=== PATIENT | female | born 1965 | race Caucasian/White ===

== ENCOUNTER 2025-01-11 12:47 | Outpatient (REF) | payer BC, SELFPAY ==
--- NOTE | ~2025-01-11 | XR_ITS ---
CLINICAL HISTORY: M48.062 - Spinal stenosis, lumbar region with neurogenic claudication --- Additional Notes or Special Instructions: AP lateral flexion extension 4 views lumbar spine Comparison: None provided Findings: Grade 1 retrolisthesies L2 on L3 and L3 on L4. Grade 1 anterolisthesis L4 on L5. Grade 2 anterolisthesis L5 on S1. Findings are not significantly change in flexion or extension. Slight dextroscoliosis apex L3. No acute fractures or dislocation. No significant vertebral body compression deformity. Moderate to moderately severe multilevel disc space narrowing especially L3-4. Small multilevel endplate osteophytes. Moderate to moderately severe multilevel facet arthrosis especially L5-S1. IMPRESSION: 1. No acute fracture in the lumbar spine. 2. Multilevel spondylolistheses as described with no findings to suggest instability. 3. Moderate to moderately severe degenerative changes. This document has been electronically signed by: Ara Kilgore DO on 01/11/2025 15:35:10
== END 2025-01-11 12:48 | disposition home or self-care (01) ==
LOC: HO.HOSX 12:47
PROVIDERS: PCP Family Medicine; Visit Provider Neurological Surgery
DX: M48.062 Spinal stenosis, lumbar region with neurogenic claudication (principal)
CPT/HCPCS: 72110

== ENCOUNTER 2025-01-11 12:47 | Outpatient (AMB) | payer BC, SELFPAY ==
[2025-01-11 12:57] VITALS: BMI 23.0
--- NOTE | 2025-01-11 12:57 | A.SPINEOV_ITS ---
Vital Signs 01/11/25 12:57 Height 5 ft 3 in Weight 130 lb BMI 23.0 Intake Visit Reasons: lumbar stenosis Intake Note: Ms. Mendez is here today c/o low back pain. 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 HPI: This 59-year-old female he is having a 2 year history of progressive pain that radiates from the were sacral area into her buttocks down to the outside of her lower legs and top of her feet. She can hardly stand or walk due to the symptoms. The symptoms are similar in intensity in both legs. Sitting down or leaning forward improves the symptoms. There is associated paresthesias in the lateral part of the distal legs. She occasionally trips. 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 She takes the elevator to avoid walking. She takes anti-inflammatory drugs. Epidural steroid injections provided temporary relief. Physical therapy was completed and did not improve her symptoms. - PMH: Arthritis, history of depression, hysterectomy, bunionectomy, carpal tunnel release Medications: Cyclobenzaprine well p.r.n., meclizine p.r.n., methylphenidate Allergies: Bacitracin, Mike. Social history: . 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 Nonsmoker Physical Exam: Pleasant female. Height 5 ft 3, weight 130 lb. She is able to reproduce his symptoms after a few minutes standing in the office. The symptoms radiate in an L5 dermatome bilaterally. Motor exam shows a grade 4-/5 weakness of the right dorsiflexors. The remainder of the muscle groups are intact. Sensory exam is intact. No pathological reflexes. Radiological Studies: MRI done at [facility] on 10/11/2024 shows a grade 1-2 spondylolisthesis L5-S1 with bilateral severe L5 foraminal stenosis. There is also an anterolisthesis L4-5 causing moderate central stenosis. Overall there is lumbar degenerative disc disease from L1-S1. Dynamic x-rays today show grade 2 L5-S1 spondylolisthesis and a grade 1 L4-5 spondylolisthesis. The L5-S1 spondylolisthesis is unstable. Impression/Plan: This patient is suffering from neurogenic claudication in L5 dermatome. Most likely his symptoms are related to the L5-S1 spondylolisthesis but the L4-5 spondylolisthesis can not be excluded as a contributing factor as well. Therefore, I recommended an anterior lumbar interbody fusion L4-5, L5-S1. This will allow a congregation of the lumbar anatomy and indirect decompression of the nervous structures that are responsible for the neurogenic claudication symptoms. The patient wants to proceed. She has to find the right time as she does not have enough sick time. She will call my office for a date. She also has to seedrShailesh Duvall, the approach surgeon. Thank you for allowing me to participate in your patients care. total time spent was 50 minutes in counseling ,coordination of plan, personal review of imaging, surgical decision making and subsequent plan Anson Sinclair MD, PhD Spine Fellowship Trained Neurosurgeon Director, [facility] Orders: Orders XR lumbar spine 4V min Today M48.062 - Spinal stenosis, lumbar region with neurogenic claudication Coding Level of Care Code New Pt Level 4 (99293) Diagnoses Lumbar stenosis with neurogenic claudication M48.062
== END 2025-01-11 14:31 | disposition home or self-care (01) ==
LOC: HO.HNS 12:48
PROVIDERS: PCP Family Medicine; Visit Provider Neurological Surgery
DX: M48.062 Spinal stenosis, lumbar region with neurogenic claudication (principal)
CPT/HCPCS: 99204

== ENCOUNTER → 2025-01-11 13:31 | Outpatient (BNV) | payer BC, SELFPAY | PROVIDERS: PCP Family Medicine; Visit Provider Radiology Diagnostic Radiology | DX: M43.16 Spondylolisthesis, lumbar region (principal) | CPT/HCPCS: 72110 ==

== ENCOUNTER → 2025-03-12 11:13 | Outpatient (BNV) | payer BC, SELFPAY | PROVIDERS: Admitting Provider Neurological Surgery; Visit Provider Internal Medicine Cardiovascular Disease | DX: Z01.810 Encounter for preprocedural cardiovascular examination (principal) | CPT/HCPCS: 93010 ==

== ENCOUNTER 2025-03-26 09:32 | Outpatient (BNV) | payer BC, SELFPAY | END 2025-03-26 13:40 | PROVIDERS: Admitting Provider Neurological Surgery; Visit Provider Radiology Diagnostic Radiology | DX: Z03.89 Encounter for observation for other suspected diseases and conditions ruled out (principal); Z98.1 Arthrodesis status | CPT/HCPCS: 74018 ==

== ENCOUNTER 2025-03-26 09:32 | Inpatient (IN) | payer BC, SELFPAY ==
--- NOTE | 2025-03-12 | ECG_ITS ---
Test Reason : PREOP Blood Pressure : */* mmHG Vent. Rate : 73 BPM Atrial Rate : 73 BPM P-R Int : 134 ms QRS Dur : 80 ms QT Int : 396 ms P-R-T Axes : 56 19 32 degrees QTcB Int : 436 ms Normal sinus rhythm Normal ECG No previous ECGs available Referred By: Rosalva Castro Electronically Signed By: MIKE JEAN-BAPTISTE MD
[2025-03-12 10:18] VITALS: BP 119/78; PULSE 80; RESP 16; O2SAT 97; BMI 23.0
--- NOTE | 2025-03-12 10:44 | HO.ANESPROP2 ---
Documented by User: Rosalva Castro NP 03/13/25 09:38 HPI - Anesthesia Eval Consult details Narrative: 59yo F for ?L4-5,L5-S1 Ant Lumbar Interbody Fusion, 03/26/25 Mild URI weeks ago resolved No CP. 2023 onset of asthma-like symptoms and bronchospasm. PCP rx'd new prn albuterol with rare need GERD well controlled on ppi - was having difficulty swallowing prior and now resolved (~6 years treatment) PMF Active Problems Active Problems: All Active Problems Lumbar stenosis with neurogenic claudication (Acute) Past Medical History Medical History History of anemia History of blood transfusion (~2004) Foot drop, right foot Numbness and tingling of both legs Seasonal allergies SOB (shortness of breath) on exertion OAB (overactive bladder) GERD (gastroesophageal reflux disease) Gout Spinal stenosis Depression RASHEED (generalized anxiety disorder) ADD (attention deficit disorder) Family History Family history of problems with anesthesia: No Surgical History Surgical History Hx of tonsillectomy History of arthroscopy of left shoulder (~2023) Hx of arthroscopy of right knee Hx of hernia repair (~1964) Hx of hysterectomy (2004) Hx of colonoscopy (~2023) History of carpal tunnel surgery of right wrist History of bunionectomy of both great toes (~1999) History of Problems with Anesthesia: No Social History Social History Are you a primary palliative care specialist to a significant other at home: No Do you presently have visiting nurse or other home services: No Patient Tobacco Use Status: Never used Tobacco Use of substances other than those prescribed or required for medical reasons: No Have you been hit, kicked, punched, or otherwise hurt by someone within the past year? If so, by whom?: No Are you DNR?: No Advance Directives: No Advance Directives Information Provided: Yes Advance Directives on File: No Meds Allergies Allergy/AdvReac Type Severity Reaction Status Date / Time bacitracin Allergy Severe Hives Verified 03/26/25 09:18 benoxinate Allergy Severe Hives Verified 03/26/25 09:18 Zync Allergy Severe Hives Uncoded 03/26/25 09:18 Home Medications ?Medication ?Instructions ?Recorded ?Confirmed ?Last Taken ?Type ascorbic acid (vitamin C) 500 mg 500 mg PO DAILY 03/11/25 03/26/25 Unknown History tablet (Vitamin C) biotin 1,000 mg PO DAILY 03/11/25 03/26/25 Unknown History celecoxib 200 mg capsule (Celebrex) 200 mg PO DAILY 03/11/25 03/26/25 03/19/25 History methylphenidate HCl 10 mg tablet 10 mg PO TID 03/11/25 03/26/25 Unknown History omeprazole 40 mg capsule,delayed 40 mg PO DAILY 03/11/25 03/26/25 03/26/25 08:00 History release oxcarbazepine 300 mg tablet 150 mg PO BID 03/11/25 03/26/25 03/26/25 08:00 History oxybutynin chloride 10 mg 10 mg PO QAM 03/11/25 03/26/25 Unknown History tablet,extended release 24 hr venlafaxine 150 mg 150 mg PO DAILY 03/11/25 03/26/25 03/26/25 08:00 History capsule,extended release 24 hr albuterol sulfate 90 mcg/actuation 2 puff inhalation Q4-6H PRN 03/12/25 03/26/25 Unknown History aerosol inhaler Shortness Of Breath Or Wheezing ibuprofen 600 mg tablet 600 mg PO Q8H PRN Pain 03/12/25 03/26/25 03/19/25 History Exam Height,Weight and Vital Signs: Height 5 ft 3 in Weight 58.8 kg Last Vital Signs Pulse 80 03/12/25 10:18 Resp 16 03/12/25 10:18 BP 119/78 03/12/25 10:18 Pulse Ox 97 03/12/25 10:18 O2 Del Method Room Air 03/12/25 10:18 Pertinent Lab Results Pertinent Lab Results: Lab Results 03/12/25 03/12/25 Range/Units 11:22 11:30 WBC 7.2 (4.8-10.8) X10*3/uL RBC 4.18 L (4.20-5.50) X10*6/uL Hgb 13.7 (12.0-16.0) g/dl Hct 40.7 (37.0-47.0) % MCV 97.4 (80.0-98.0) fL MCH 32.8 (27.0-33.0) pg MCHC 33.7 (31.0-35.0) g/dl RDW 11.9 (11.0-16.0) % Plt Count 278 (160-400) X10*3/uL MPV 9.3 L (9.4-12.3) fL Absolute Nucleated RBC 0.000 (0.0-0.012) X10*3/uL Nucleated RBC % (auto) 0.0 (0.0-0.2) /100WBC Sodium 137 (135-145) mmol/L Potassium 4.4 (3.3-5.1) mmol/L Chloride 100 (96-108) mmol/L Carbon Dioxide 29 (22-29) mmol/L Anion Gap 12 (12-20) BUN 14 (9-16) mg/dL Creatinine 0.65 (0.5-1.4) mg/dL Estim Creat Clear Calc 76.1 Estimated GFR > 60 Random Glucose 88 (60-115) mg/dL Calcium 9.8 (8.4-10.2) mg/dL Blood Type A Positive Antibody Screen NEGATIVE Narrative Narrative: EKG 03/2025 Vent. Rate : 73 BPM Atrial Rate : 73 BPM P-R Int : 134 ms QRS Dur : 80 ms QT Int : 396 ms P-R-T Axes : 56 19 32 degrees QTcB Int : 436 ms Normal sinus rhythm Normal ECG No previous ECGs available Airway Mallampati Class: II TM Dist: >3cm Neck ROM: Full Loose/Missing/Broken Teeth: No (crowns stable) Heart: RRR Lungs: CTAB Assessment and Plan Assessment Anesthesia Assessment: Anesthesia Plan Discussed and PAT Visit Final Anesthetic Review Family History of Problems with Anesthesia: No History of Problems with Anesthesia: No Documented by User: Mathew Sykes MD 03/26/25 13:25 [facility] Past Medical History Medical History History of anemia History of blood transfusion (~2004) Foot drop, right foot Numbness and tingling of both legs Seasonal allergies SOB (shortness of breath) on exertion OAB (overactive bladder) GERD (gastroesophageal reflux disease) Gout Spinal stenosis Depression RASHEED (generalized anxiety disorder) ADD (attention deficit disorder) Surgical History Surgical History Hx of tonsillectomy History of arthroscopy of left shoulder (~2023) Hx of arthroscopy of right knee Hx of hernia repair (~1964) Hx of hysterectomy (2004) Hx of colonoscopy (~2023) History of carpal tunnel surgery of right wrist History of bunionectomy of both great toes (~1999) Social History Social History Are you a primary palliative care specialist to a significant other at home: No Do you presently have visiting nurse or other home services: No Patient Tobacco Use Status: Never used Tobacco Use of substances other than those prescribed or required for medical reasons: No Have you been hit, kicked, punched, or otherwise hurt by someone within the past year? If so, by whom?: No Are you DNR?: No Advance Directives: No Advance Directives Information Provided: Yes Advance Directives on File: No Meds Allergies Allergy/AdvReac Type Severity Reaction Status Date / Time bacitracin Allergy Severe Hives Verified 03/26/25 09:18 benoxinate Allergy Severe Hives Verified 03/26/25 09:18 Zync Allergy Severe Hives Uncoded 03/26/25 09:18 Home Medications ?Medication ?Instructions ?Recorded ?Confirmed ?Last Taken ?Type ascorbic acid (vitamin C) 500 mg 500 mg PO DAILY 03/11/25 03/26/25 Unknown History tablet (Vitamin C) biotin 1,000 mg PO DAILY 03/11/25 03/26/25 Unknown History celecoxib 200 mg capsule (Celebrex) 200 mg PO DAILY 03/11/25 03/26/25 03/19/25 History methylphenidate HCl 10 mg tablet 10 mg PO TID 03/11/25 03/26/25 Unknown History omeprazole 40 mg capsule,delayed 40 mg PO DAILY 03/11/25 03/26/25 03/26/25 08:00 History release oxcarbazepine 300 mg tablet 150 mg PO BID 03/11/25 03/26/25 03/26/25 08:00 History oxybutynin chloride 10 mg 10 mg PO QAM 03/11/25 03/26/25 Unknown History tablet,extended release 24 hr venlafaxine 150 mg 150 mg PO DAILY 03/11/25 03/26/25 03/26/25 08:00 History capsule,extended release 24 hr albuterol sulfate 90 mcg/actuation 2 puff inhalation Q4-6H PRN 03/12/25 03/26/25 Unknown History aerosol inhaler Shortness Of Breath Or Wheezing ibuprofen 600 mg tablet 600 mg PO Q8H PRN Pain 03/12/25 03/26/25 03/19/25 History Assessment and Plan Final Anesthetic Review NPO: Yes ASA Class: II Final Preanesthetic Review: No Changes in Pt Med Stat, Meds/Allgs Chart Reviewed, Consent Obtained/Reviewed and Anes Risks/Benef Reviewed Patient Risk: Low Procedure Risk: Low Anesthetic Plan Anesthetic Plan: GA Disposition: Standard PACU
[2025-03-12 12:05] LABS: Hematocrit 40.7 % (37.0-47.0); Hemoglobin 13.7 g/dl (12.0-16.0); Mean Corpuscular HGB Conc 33.7 g/dl (31.0-35.0); Mean Corpuscular Hemoglobin 32.8 pg (27.0-33.0); Mean Corpuscular Volume 97.4 fL (80.0-98.0); NRBC Abs Auto 0.000 X10*3/uL (0.0-0.012); NRBC Pct Auto 0.0 /100WBC (0.0-0.2); Platelet Count 278 X10*3/uL (160-400); Red Blood Count 4.18 X10*6/uL (4.20-5.50); White Blood Count 7.2 X10*3/uL (4.8-10.8)
[2025-03-12 12:28] LABS: Anion Gap 12 (12-20); Blood Urea Nitrogen 14 mg/dL (9-16); Calcium 9.8 mg/dL (8.4-10.2); Carbon Dioxide 29 mmol/L (22-29); Chloride 100 mmol/L (96-108); Creatinine Clr Calc Pharmacy 76.1; Estimated Glomerular Filt Rate > 60; Potassium 4.4 mmol/L (3.3-5.1); Sodium 137 mmol/L (135-145)
[2025-03-26] VITALS (8 sets, daily range): BP systolic 100–137; BP diastolic 52–90; PULSE 77–92; RESP 12–19; TEMP 36.1–36.9; O2SAT 93–100; BMI 24.5
--- NOTE | ~2025-03-26 | FL_ITS ---
EXAMINATION: XR FLUOROSCOPY WITH IMAGES CLINICAL INFORMATION: L4-5, L5-S1 ALIF COMPARISON: X-ray 06/21/2024 TECHNIQUE: Fluoroscopy time: 2.4 minutes DAP: 80 mGycm2 Images: 4 FINDINGS: Fluoroscopy provided in the operating room. Intraoperative images demonstrate postsurgical changes with posterior spinal fusion hardware at L4-S1, and interbody device at L4-5, L5-S1. FL/FL guidance in OR IMPRESSION: Fluoroscopy provided in the operating room. See surgical report for details. Electronically signed by: Baljit Amos MD 03/27/2025 12:09 PM LONNIE MARCH
--- NOTE | ~2025-03-26 | XR_ITS ---
EXAMINATION: XR ABDOMEN KUB CLINICAL INDICATION: s/p ALIF COMPARISON: None available. TECHNIQUE: AP view of the abdomen, supine. FINDINGS: Bowel gas pattern is normal/nonspecific. There is no focal dilated loop. Mild fecal residue seen throughout the colon and rectum in keeping with mild constipation. No organomegaly or large abdominal mass. No abnormal soft tissue calcifications. There has been a recent anterior lumbar interbody fusion of L4-5 and L5-S1. Hardware appears in place, well seated, without periprosthetic fracture or complication evident. There is a mild right convex scoliosis of the lumbar spine, apex at L3. No suspicious bone lesions. There are surgical clips in the left midpelvis. XR/XR abdomen 1V IMPRESSION: Status post ALIF of L4-5 and L5-S1 without obvious complication via radiography. Electronically signed by: Vinod Castaneda MD 03/26/2025 02:22 PM LONNIE MARCH
[2025-03-26] MEDS: Lactated Ringers 1,000 ML 100 ML IVCONT (09:32)
--- NOTE | 2025-03-26 09:59 | PHA.MEDREC ---
Pharmacy Consult ? Medication Reconciliation Pharmacy has reviewed the medication reconciliation done by nursing.
--- OUTSIDE RECORDS SUMMARY | 2025-03-26 11:03 | XMS_ITS | Clinical Summary ---
Author Organization [facility] Address [address] [place] [address] Care Team Providers Care Materials Specialist Name Role Phone Srikanth Looney MD Primary Care Provider [phone] Allergies Active Allergy Reactions Criticality Noted Date Comments Bacitracin Itching 04/12/2023 Benzonatate Itching Medium 03/18/2023 Zinc Dermatitis 08/03/2017 Medications * This document contains information received from the source organization and may not represent a complete record from that organization. BIOTIN ORAL Take 1 tablet by mouth in the morning. Active ascorbic acid (VITAMIN C ORAL) Take 500 mg by mouth in the morning. Active vitamin B complex capsule Take 1 capsule by mouth in the morning. Active cyclobenzaprine (FLEXERIL) 10 mg tabletIndication s:Sciatica of left side associated with disorder of lumbar spine Take 1 tablet (10 mg total) by mouth 3 times a day as needed for muscle spasms. 45 tablet 09/27/2023 Active venlafaxine XR (EFFEXOR XR) 150 mg capsule Take 1 capsule (150 mg total) by mouth once a day. 90 capsule 3 06/19/2024 06/14/19 26 Active meclizine (ANTIVERT) 12.5 mg tabletIndication s:Vertigo Take 1 tablet (12.5 mg total) by mouth 3 times a day as needed for dizziness. 15 tablet 07/20/2024 Active omeprazole (PriLOSEC) 40 mg capsuleIndicatio ns:Gastroesophag eal reflux disease, unspecified whether esophagitis present Take 1 capsule (40 mg total) by mouth once a day. 90 capsule 3 08/17/2024 08/13/19 26 Active OXcarbazepine (TRILEPTAL) 300 mg tablet Take 0.5 tablets (150 mg total) by mouth 2 times a day. 90 tablet 1 09/25/2024 Active diazePAM (VALIUM) 5 mg tablet Take 1 tab PO one hour prior to procedure. May repeat x 1 2 tablet 11/30/2024 Active celecoxib (CeleBREX) 200 mg capsuleIndicatio ns:Arthritis Take 1 capsule (200 mg total) by mouth once a day. 90 capsule 1 01/01/2025 07/01/19 26 Active oxybutynin XL (DITROPAN XL) 10 mg tablet Take 1 tablet (10 mg total) by mouth in the morning. 90 tablet 1 01/25/2025 Active methylphenidate HCl (RITALIN) 10 mg tablet Take 1 tablet (10 mg total) by mouth 3 times a day. 90 tablet 03/15/2025 04/14/20 25 Active Active Problems Problem Noted Date Diagnosed Date Spinal stenosis of lumbar re gion with neurogenic claudication 01/03/2025 Assessment & Plan (01/25/2025 2:42 PM EDT): Patient is under spinal surgeon supervision and possibly she will have surgery for lumbar spine stenosis. Bilateral hearing loss 07/13/2024 Vertigo 07/13/2024 Bilateral low back pain without sciatica 025 Sciatica of left side associ ated with disorder of lumbar spine 09/27/2023 Depression 04/21/2023 Assessment & Plan (01/25/2025 2:42 PM EDT): Stable on medication. Pain in both wrists 04/21/2023 Drug reaction 03/18/2023 Flu-like symptoms 03/17/2023 ADD (attention deficit disorder) 03/17/2023 Assessment & Plan (01/25/2025 2:42 PM EDT): Stable on medication. Assessment & Plan (01/20/2024 2:28 PM EDT): Well-controlled on medication. Will patient will continue current regimen. GERD (gastroesophageal reflux disease) Assessment & Plan (01/25/2025 2:42 PM EDT): Stable on medication. Assessment & Plan (01/20/2024 2:28 PM EDT): Well-controlled by the diet. Overactive bladder 03/17/2023 Assessment & Plan (01/25/2025 2:42 PM EDT): Stable on medication. Assessment & Plan (01/20/2024 2:28 PM EDT): Well-controlled on medication. Patient will continue current regimen. Sciatica of right side 03/17/2023 Annual visit for general silva lt medical examination with abnormal findings 03/09/2023 Assessment & Plan (01/20/2024 2:28 PM EDT): Chronic idiopathic gout involving toe of left fo ot 09/16/2017 Assessment & Plan (01/25/2025 2:42 PM EDT): Stable on medication. Pain in both hands 08/03/2017 Assessment & Plan (08/03/2017 8:34 PM EDT): We will check hand x-ray to evaluate degree of degenerative changes, versus changes suggestive for inflammatory arthritis. We will check inflammatory markers as well as serology for inflammatory arthritis including rheumatoid factor and anti-CCP antibody Pain in both feet 08/03/2017 Assessment & Plan (08/03/2017 8:33 PM EDT): We will check x-ray to evaluate degree of degenerative changes and evaluate for bunion and first MTP osteoarthritis as well as erosive changes suggestive for gout. Check basic labs and uric acid level. She was recommended to take full dose of anti-inflammatory medications RASHEED (generalized anxiety disorder) 10/23/2013 Assessment & Plan (01/25/2025 2:42 PM EDT): Stable on medication. Resolved Problems Problem Noted Date Diagnosed Date Resolved Date Acute non-recurrent maxillary sinusitis 07/20/2024 01/24/2025 Acute bacterial rhinosinusitis 03/17/2023 01/24/2025 Elevated blood uric acid level 02/10/2018 01/24/2025 Dysthymic disorder 10/30/2013 Assessment & Plan (01/20/2024 2:28 PM EDT): Well-controlled on medication. Patient will continue current regimen. 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; Depression, unspecified depression type; RASHEED (generalized anxiety disorder); Gastroesophageal reflux disease without esophagitis; Overactive bladder; Spinal stenosis of lumbar region with neurogenic claudication 01/25/[address] [address] Srikanth Looney MD 01/25/[address] [address] Srikanth Looney MD 01/03/2025 2:00 PM EDT Office Visit [facility] [address] [place] [address] Abrahan Nichole MD Spinal stenosis of lumbar region with neurogenic claudication (Primary Dx) 12/29/[address] [place] [address] Srikanth Looney MD Arthritis from Last 3 Months Immunizations Immunization Administration Dates Next Due INFLUENZA, SPLIT VIRUS, TRIVALENT, PF ,01/20/2024,02/15/2017,01/21 Influenza, Injectable, Quadr ivalent, Preservative Free 02/06/2020,02/07/2019,02/14/2018 Influenza, Quadrivalent, Rec ombinant, Injectable, PF 04/27/2022 Influenza, Trivalent, MDV, Injectable 03/05/2014 Pneumococcal Polysaccharide Vaccine, 23 Valent 12/20/2016 Pneumococcal conjugate PCV20,polysaccharide EGO700 conjugate, adjuvant, PF (Prevnar 20) 01/25/2025 Tetanus Toxoid, Reduced Diph theria Toxoid, and Acellular Pertussis Vaccine, Adsorbed 01/20/2024 Zoster Vaccine Recombinant 10/12/2017 Family History Medical History Relation Name Comments Diabetes type II Father Breast cancer Maternal Grandmother Other Mother No pertinent fa matthew history Ovarian cancer Mother's Sister Relation Name Status Comments Father Maternal Grandmother Mother Mother's Sister Social History Tobacco Use Types Packs/Day Years Used Date Smoking Tobacco: Never Passive Smoke Exposure: Never Smokeless Tobacco: Never Tobacco Cessation:Counseling Given: Not Answered Comments:: Alcohol Use Standard Drinks/Week Comments Yes 0 (1 standard drink = 0.6 oz pur e alcohol) Socially on weekends [facility] Utilities Answer Date Recorded In the past 12 months has e electric, gas, oil, or water [employer] threatened to shut off services in your home? No 05/21/2024 Hunger Vital Sign Answer Date Recorded Within the past 12 months, y ou worried that your food would run out before you got the money to buy more. Sometimes true Within the past 12 months, t he food you bought just didn't last and you didn't have money to get more. Patient declined Transportation Answer Date Recorded In the past 12 months, has l ack of reliable transportation kept you from medical appointments, meetings, work or from getting things needed for daily living? No 05/21/2024 Housing Answer Date Recorded Housing Risk Low 1 05/21/2024 Housing Risk Medium 1 05/21/2024 Housing Risk High Not on file 05/21/2024 What is your living situation today? [facility] 05/21/2024 Comments No Sex and Gender Information Value Date Recorded Sex Assigned at Female 04/10/2023 11:13 AM EST Legal Sex Female 12:03 AM EDT Gender Identity Female 04/10/2023 11:13 AM EST Sexual Orientation Straight 06/30/2023 6: 14 PM EST Last Filed Vital Signs Vital Sign Reading Time Taken Comments Blood Pressure 115/70 01/25/2025 2:39 PM EDT Pulse 82 01/25/2025 2:09 PM EDT Temperature 35.7 C (96.3 F) 01/25/2025 2:09 PM EDT Respiratory Rate 14 12/20/2024 9:26 AM EDT Oxygen Saturation 97% 01/25/2025 2:09 PM EDT Inhaled Oxygen Concentration - - Weight 59 kg (130 lb) 01/25/2025 2:09 PM EDT Height 160 cm (5' 3 ) 01/25/2025 2:09 PM EDT Body Mass Index 23.03 01/25/2025 2:09 PM EDT Plan of Treatment Upcoming Encounters Date Type Department Care Team (Late st Contact Info) Description 07/16/2025 1:20 PM EDT Appointment [facility] [address] [place] [address] 07/26/2025 3:30 PM EDT Office Visit [address] Department [address] [facility] [address] [place] [address] Srikanth Looney MD [address] [place] [id number] Health Maintenance Due Date Last Done Comments Cologuard 1965 FOBT / Fit Test 1965 Sigmoidoscopy 1965 Zoster Vaccines (2 of 2) 12/07/2017 10/12/2017 COVID-19 Vaccine ( - season) 2024 03/19/2022, 04/20/2021, 08/11/2020, Additional history exists Social Drivers of Health Annual Screening 05/21/2025 05/21/2024 Depression Screening and Follow-Up 01/18/2026 01/18/2025 Mammogram 07/10/2026 07/10/2024, 03/0 08/2023, 06/24/2022, Additional history exists Colon Cancer Screening 08/01/2033 Colonoscopy 08/01/2033 08/02/2023 DTaP,Tdap,and Td Vaccines (3 - Td or Tdap) 01/19/2034 01/20/2024, 09/02/2013 RSV Vaccine (60+ years old and patients) (1 - 1-dose 75+ series) 2039 HIV Screening Completed 11/25/2023 Hepatitis C Screening Completed 11/25/2023 Alcohol/Substance Use Screening Completed 01/18/2025 Influenza Vaccine Completed 01/25/2025, , 04/27/2022, Additional history exists Pneumococcal Vaccine: 50+ Years Completed 01/25/2025, 12/20/2016 Hepatitis B Vaccines Aged Out No long er eligible based on patient's age to complete this topic Procedures * Due to [place] [employer] law, this organization might not be sharing negative HIV tests. Procedure Name Priority Date/Time Associated Diagnosis Comments AMB EXTERNAL XR L-SPINE, OUTSIDE RESULT 01/11/2025 DIDIER BILATERAL SCREENING DIGITAL MAMMOGRAM WITH BRONWYN Routine 07/10/2024 1:09 PM EDT Screening mammogram for breast cancer HEPATITIS C ANTIBODY W/REFLEX TO HCV RNA, QUANTITATIVE PCR Routine 11/25/2023 10:54 AM EDT Annual physical exam COLONOSCOPY 08/02/2023 from Last 3 Months or Most Recently Relevant to Health Maintenance Results * Due to [place] [employer] law, this organization might not be sharing negative HIV tests. * XR L-Spine, Outside Result (01/11/2025) 01/11/2025 us Onbase Scan Lionel AMB EXTERNAL RESULT PROCEDURE S Final Result * DIDIER Bilateral Screening Digital Mammogram With Bronwyn (07/10/2024 1:09 PM EDT) Anatomical Region Laterality Modality Breast Bilateral Mammography Narrative 07/22/2024 12:14 PM EDT Exam Date: 07/10/[address] [address] EXAMINATION DIDIER Bilateral Screening Digital Mammogram With Bronwyn. INDICATION Carina Mendez is a 59 y.o. female and is seen for: DIDIER Bilateral Screening Digital Mammogram With Bronwyn. CC and MLO views were obtained. FDA approved [place] PC 911 AI (artificial intelligence) software and R2 CAD were used as a concurrent reading aid in the interpretation of this study. COMPARISON Compared to: 07/05/2023 DIDIER Bilateral Screening Digital Mammogram With Bronwyn, 06/24/2022 DIDIER Screening Digital Mammogram, 06/18/2021 DIDIER Screening Digital Mammogram, 05/29/2020 DIDIER Screening Digital Mammogram, 05/26/2019 DIDIER Screening Digital Mammogram, 04/26/2018 DIDIER Screening Digital Mammogram, and 12/31/2016 DIDIER Screening Digital Mammogram Bilateral Breast Findings: The breasts are heterogeneously dense, which may obscure small masses. No significant masses, calcifications or other abnormalities are seen. IMPRESSION BI-RADS ATLAS category (overall): 1 - Negative MANAGEMENT Routine Screening Mammogram in 1 Year is recommended for bilateral. The patient was entered into a reminder system with a subsequent mammography target date. The patient s lifetime risk for breast cancer was calculated using Tyrer-Cuzick: 11.49%. Women with lifetime risk <20% and dense breast tissue may benefit from supplemental screening with breast MRI or automated breast ultrasound (ABUS) depending on risk factors. https://acsearch.acr.org/docs/[email or web address]/Narrative/ Breast MRI is available at many [facility] MRI locations. To schedule, enter an MRI order into [facility] Epic (MRI BREAST BILAT SCREENING W WO CONTRAST), call [phone] or [phone], or fax [phone]. ABUS is available at two [facility] sites. To schedule, enter an ABUS order into [facility] (ABUS), contact [facility] Scheduling (call [phone] or fax order [phone]), or contact [facility] Central Scheduling (call [phone] or fax order [phone]). If this radiology report contains a blank impression section, it is an incomplete radiology report. Please contact the interpreting radiologist or applicable radiology division as soon as possible to obtain the completed interpretation. Merari Galvin MD Resulting Agency Comment [id number] [phone] Srikanth Looney MD IMG BI PROCEDURES Final Resul t * Hepatitis C Antibody w/Reflex to HCV RNA, Quantitative PCR (11/25/2023 10:54 AM EDT) Hepatitis C Antibody Interpretation Nonreactive Nonreactive 11/25/2023 2:11 PM EDT LABORATORY Blood Structure of peripheral vein / Unknown Venipuncture / Unknown 11/25/2023 10:54 AM EDT 11/25/2023 11:03 AM EDT Srikanth Looney MD LAB BLOOD ORDERABLES Final Re sult LABORATORY [address] [place] [address], * COLONOSCOPY (08/02/2023) Narrative Procedure Note Ramses [place] MD - 08/02/2023 1:19 PM EDT [facility] Patient Name: Carina Mendez Procedure Date: 08/02/2023 1:19 PM Date of : 1965 Admit Type: Outpatient Age: 58 Room: GI PROCEDURE Gender: Female Note Status: Finalized Attending MD: Ramses [place] MD Procedure: Colonoscopy Indications: Screening for colorectal malignant neoplasm Comorbidities Providers: Ramses [place] MD Referring MD: Srikanth Looney (Referring MD) Requesting Provider: Medicines: See the Anesthesia note for documentation of the administered medications Complications: No immediate complications. Estimated Blood Loss: Estimated blood loss: none. Procedure: After I obtained informed consent, the scope was passed under direct vision. Throughout theprocedure, the patient's blood pressure, pulse, and oxygen saturations were monitored continuously. [id number] Colonoscope was introduced through the anus and advanced to the cecum, identified by appendiceal orifice and ileocecal valve. The colonoscopy was performed without difficulty. The patient tolerated the procedure well. The quality of the bowel preparation was good. The bowel preparation usedwas Miralax via split dose instruction. informedconsent included but was not limited to fever, infections, bleeding, perforation, missed pathology, damage toa major organ and lack of guarantee of benefit Findings: The perianal and digital rectal examinations were normal. The entire examined colon appeared normal on direct and retroflexion views. Impression: - The entire examined colon is normal on direct and retroflexion views. - No specimens collected. Ramses [place] MD 08/02/2023 1:46:40 PM This report has been signed electronically. Number of Addenda: 0 Note Initiated On: 08/02/2023 1:19 PM Ramses [place] MD PROVATION PROCEDURES Final Re sult from Last 3 Months or Most Recently Relevant to Health Maintenance Insurance [facility] HMO/POS Advance Directives Documents on File Type Date Recorded Patient Responder Expl anation Health Care Proxy 10/27/2021 Health Care Proxy 10/27/2021 Health Care Proxy 10/27/2021 Health Care Proxy 10/27/2021 Health Care Proxy 10/27/2021 Health Care Proxy 10/27/2021 Health Care Proxy 10/27/2021 Health Care Proxy 10/27/2021 Advance Directive 10/26/2021 4:24 PM * Presumed Full Code (Latest Code Status on File) Date Activated Date Inactivated Comments 08/17/2023 6:46 AM 08/17/2023 1:06 PM * Full Code Date Activated Date Inactivated Comments 08/02/2023 12:33 PM 08/02/2023 4:26 PM Healthcare Agents on File Name Relationship Healthcare Agent Relationshi p Communication Robles Mendez [facility] Agent Care Teams Materials Specialist Relationship Specialty Start Date End Date Srikanth Looney MD [address] [place] [id number] PCP - General Family Medicine 03/01/23
--- OUTSIDE RECORDS SUMMARY | 2025-03-26 11:03 | XMS_ITS | Encounter Summary ---
Author Organization [facility], Address [address] [place] [address] Phone Care Team Providers Care Associate Justice Name Role Phone Srikanth Looney MD Primary Care Provider [phone] Encounter Details Date Type Department Care Team (Late st Contact Info) Description 03/12/2025 Documentation Only [facility] - Vascular Access Center [address] [place] [address] Fina Lyons [address] [place] [phone] Social History Tobacco Use Types Packs/Day Years Used Date Smoking Tobacco: Never Assessed Comments Unknown Sex and Gender Information Value Date Recorded Sex Assigned at Not on file Legal Sex Female 11:17 AM EDT Gender Identity Not on file Sexual Orientation Not on file documented as of this encounter Plan of Treatment Not on file documented as of this encounter Visit Diagnoses Not on filedocumented in this encounter Care Teams Associate Justice Relationship Specialty Start Date End Date Srikanth Looney MD [address] [place] [id number] PCP - General Family Medicine 02/07/25 documented as of this encounter
--- OUTSIDE RECORDS SUMMARY | 2025-03-26 11:03 | XMS_ITS | Clinical Summary ---
Author Organization [facility], Address [address] [place] [address] [place] [address] Phone Care Team Providers Care Pipe Bowl Paint Trimmer Name Role Phone Srikanth Looney MD Primary Care Provider [phone] Allergies Active Allergy Reactions Criticality Noted Date Comments Bacitracin Itching 04/12/2023 Benzonatate Itching Medium 03/18/2023 Zinc Dermatitis 08/03/2017 Medications venlafaxine XR (EFFEXOR-XR) 150 MG 24 hr capsule Take 150 mg by mouth 1 (one) time each day 5 06/14/19 26 Active oxybutynin XL (DITROPAN-XL) 10 MG 24 hr tablet Take 10 mg by mouth every morning 5 Active OXcarbazepine (TRILEPTAL) 300 MG tablet Take 150 mg by mouth in the morning and 150 mg in the evening. 5 Active omeprazole (PriLOSEC) [address] capsule Take 40 mg by mouth 1 (one) time each day 5 08/13/19 26 Active methylphenidate (RITALIN) 10 MG tablet Take 10 mg by mouth in the morning and 10 mg at noon and 10 mg in the evening. 5 Active meclizine (ANTIVERT) 12.5 MG tablet Take 12.5 mg by mouth 3 (three) times a day if needed for dizziness 5 Active fluticasone HFA (FLOVENT HFA) 110 MCG/ACT inhaler 5 Active diazePAM (VALIUM) 5 MG tablet Take 5 mg by mouth 1 (one) time if needed 5 Active cyclobenzaprine (FLEXERIL) 10 MG tablet Take 10 mg by mouth 3 (three) times a day if needed for muscle spasms 4 Active celecoxib (CeleBREX) 200 MG capsule Take 200 mg by mouth 1 (one) time each day 5 07/01/19 26 Active b complex vitamins capsule Take 1 capsule by mouth every morning Active Biotin 1 MG capsule Take 1 tablet by mouth every morning Active ascorbic acid (VITAMIN C) 250 MG chewable tablet Chew 500 mg every morning Active Active Problems Problem Noted Date Diagnosed Date Spinal stenosis of lumbar re gion with neurogenic claudication 01/03/2025 Vertigo 07/13/2024 Bilateral hearing loss 07/13/2024 Depressive disorder 04/21/2023 Sciatica of right side 03/17/2023 Overactive bladder 03/17/2023 Gastroesophageal reflux disease 03/17/2023 Attention-deficit hyperactiv ity disorder predominantly inattentive type 03/17/2023 Chronic primary gouty arthritis 09/16/2017 Generalized anxiety disorder 10/23/2013 Encounters Date Type Department Care Team Description 03/14/2025 8:30 AM EST Office Visit [facility] Vascular Access Center [address] [place] [address] [place] [address] Taco Duvall MD Degeneration of lumbar intervertebral disc (Primary Dx) 03/12/2025 Documentation Only [facility] Vascular Access [address] [place] [address] Fina Lyons 03/01/2025 Telephone [facility] Vascular Access [address] [place] [address] Fina Lyons from Last 3 Months Social History Tobacco Use Types Packs/Day Years Used Date Smoking Tobacco: Never Assessed Comments Unknown Sex and Gender Information Value Date Recorded Sex Assigned at Not on file Legal Sex Female 11:17 AM EDT Gender Identity Not on file Sexual Orientation Not on file Plan of Treatment Health Maintenance Due Date Last Done Comments Breast Cancer Screening 1965 Colorectal Cancer Screening: Annual FOBT 2013 Colorectal Cancer Screening: Colonoscopy 2013 Colorectal Cancer Screening: Sigmoidoscopy 2013 Pneumococcal Vaccine: 50+ Years (2 of 2 - PCV) 12/20/2017 12/20/2016 Influenza Vaccine Completed 01/25/2025, , 04/27/2022, Additional history exists Hepatitis B Vaccine Aged Out No longe r eligible based on patient's age to complete this topic [facility] [place] [address] [facility] Care Teams Pipe Bowl Paint Trimmer Relationship Specialty Start Date End Date Srikanth Looney MD [address] [place] [phone] PCP - General Family Medicine 02/07/25
--- NOTE | 2025-03-26 11:10 | P.HPSUR_ITS ---
Pre-Procedural Eval Section A - 24 Hr Update-Section A only Date of Service: 03/26/25 The patient is an INPATIENT: No Changes since office visit: No Cold of Flu in the past 2 weeks, No New Medical Problems, No Changes in Medication and No Patient answered all questions The patient has been examined within 24 hours of the surgical procedure. The History & Physical has been completed within 30 days and I have reviewed it.: No Section B - Complete if H&P > 30 days Chief Complaint: s/p L4-5 ALIF Allergies: Allergies Allergy/AdvReac Type Severity Reaction Status Date / Time bacitracin Allergy Severe Hives Verified 03/26/25 09:18 benoxinate Allergy Severe Hives Verified 03/26/25 09:18 Zync Allergy Severe Hives Uncoded 03/26/25 09:18 Review of Systems Sugical H&P ROS: Negative: Constitution, Cardiovascular, Respiratory, Neurological, Psychiatric, Hem-Onc, Allergic/Immunologic, Gastrointestinal, [place] tourinary, Musculoskeletal, Integumentary, Endocrine and Eyes/Ears/Nose/Throat Exam Surgical H&P Exam: Normal: HEENT, Normal: Heart, Normal: Lungs, Normal: Extremities, Normal: Abdomen, Normal: Skin and Normal: Neurological (awake, alert,oriented x 3 ) Plan Diagnosis/Plan: Unchanged L4-S1 anterior lumbar interbody fusion Time Spent With Patient Time: Total time managing care of this patient today __5__ minutes.
--- NOTE | 2025-03-26 14:01 | P.OP_ITS ---
Operative Note Operative Note Date of Service: 03/26/25 Narrative: Procedure: Anterior exposure for Diskectomy and inter-body fusion L4-S1 The patient was brought to the operating room, positioned on the table supine and general anesthesia was administered. The abdomen was clipped and then prepped and draped in the usual sterile fashion. After timeout was done, incision was made in the infraumbilical area just to the left of the midline 7 cm long. It was brought through subcutaneous tissue and the left anterior rectus sheath in line with the skin incision . The pre- peritoneal plane was entered, peritoneum was bluntly dissected off and iliac artery pulse was felt. Self-retaining retractor with two deep blades was inserted and peritoneum protected with moist gauzes. Left internal iliac vein was identified and dissection was carried along the medial surface of the iliac vein up to the bifurcation. The middle sacral vessels were transected and L5-S1 disc space was bluntly and sharply dissected using bipolar cautery staying directly on the surface of the spine. The midline of the disk space was marked with C-arm image guide. Left common iliac artery was then dissected from lateral to medial, there was one segmental branch which was transected between ties , vein was out of the way. L4-L5 disk space was dissected in midline was marked. There was no ilio- lumbar vein present there. Dr. Sinclair then proceeded with the discectomy and fusion at 2 levels, which will be dictated separately by him. After this was done, hemostasis was checked and was excellent. Left ureter was examined prior to closure and was intact. There was good left external iliac artery pulse. Diluted 0.5% Marcaine and Lidocaine was injected in the fascia and subcutaneous tissue. The incision was irrigated and closed by layers using a 2-0 Vicryl for transverse fascia, 0 Maxone for the external oblique, 3-0 Vicryl for subcutaneous tissue and 4-0 Monocryl for skin. Exo-fin glue was then applied.
--- NOTE | 2025-03-26 15:25 | P.OP_ITS ---
Operative Note Operative Note Date of Service: 03/26/25 Narrative: Preoperative Diagnosis: 1.) Lumbar spondylolisthesis L4-5, L5-S1; back pain; radiculopathy Procedure: L4-5, L5-S1 discectomy, arthrodesis and implantation cage through an anterior lumbar approach (ALIF) ; anterior instrumentation L4-S1; posterior instrumented fusion L4-S1; allograft Indication for Surgery Lumbar spondylolisthesis Consent Informed Consent was obtained for this operation. I have explained the nature, purpose and benefits of the operation. I have discussed the risks and benefit of the operation including possible complications or adverse events with patient/family. Alternative(s) were discussed with the patient with their relative benefits and risks as well as the consequences of not accepting the operation were included in obtaining consent. Surgeon: NEIO RINCON MD, PHD Procedure Assisted By: MERARI DUVALL MD and CAT Blas Description of Procedure This 59-year-old female presents with back pain and radiculopathy with imaging showing lumbar spondylolisthesis L4-5 and L5-S1 and bilateral L5 foraminal stenosis. The patient was offered an anterior lumbar interbody fusion with anterior L4-S1 instrumentation and posterior instrumented fusion L4-S1. The procedure complications were explained. The patient was consented. The patient was brought to the operating room and endotracheally intubated. The patient was put in a supine position. Prep and drape was done followed by timeout. Dr. Duvall, co-surgeon, provided the access to the L4-5, L5-S1 disc spaces through an anterior approach. He was assisted by physician technical staff assistant who performed manual retraction. He will dictate the approach in a separate operative note. When the disc spaces were exposed I took over the procedure. I started at the L4-5 level. An annulotomy was done followed by a partial discectomy. Sequential trial implants were inserted and advanced towards the posterior wall of the disc space. I completed the discectomy and prepare the endplates. Then a 30 x 24 x 11 and 8 degree lordosis Astura cage filled with allograft was inserted into the disc space. A 11 mm anterior plate was locked down with 3 x 25 mm nails for anterior instrumentation to secure the implant. Then attention was turned to the L5-S1 level where a similar procedure was done. When the diskectomy and the endplates were prepared, a 30 x 24 x 13 and 15 degree lordosis Astura cage filled with allograft was inserted into the disc space. A 13 mm anterior plate was locked down with 3 x 25 mm nails for anterior instrumentation to secure the implant in the L5-S1 disc space. The retractor was removed and hemostasis was done by Dr. Guzman who closed the incision. This marked first part of the procedure. Accordingly the patient was turned prone on the Ab spine table and 2 C arms were installed for fluoroscopy. Prep and drape was done followed by a second timeout. 2 paramedian incisions were made lateral from the L4-S1 pedicles. The muscle fascia was opened and the musculature was split bluntly to expose the posterolateral gutter. The following steps were taken for pedicle screw placement: The pediguard tap was used to create a transpedicular trajectory into the vertebral body. A K wire was advanced. A specially designed instrument was advanced over the K wire to decorticate the posterolateral gutter. Pedicle screw was advanced after which the K wire was removed. Following the steps pedicle screws were placed in the bilateral L5 and S1 pedicles. Total of 4 screws were placed with the following measurements: 6.5 x 40 mm in the right L5 pedicle and bilateral L4 and S1 pedicles and a 6.5 x 45 mm in the left L5 pedicle. A 60 mm raz was tunneled bilaterally and locked down with locking caps. The extension towers were removed. The posterolateral fusion was completed by laying down allograft in the posterolateral gutter. Hemostasis was done. The paramedian incisions were closed with an 0 Vicryl to fascia and 3-0 Vicryl to subdermal layer. Steri-Strips were used to approximate the incision. An OpSite with Tegaderm was used to cover the incisions. All sponge and needle counts were correct. The patient was extubated and transported in stable condition to recovery room. The physician technical staff assistant was critical for the following aspects of surgery : Opening of the abdomen, insertion pedicle screws and closure of the paramedian incisions. Anesthesia: General Estimated Blood Loss (ml): 70 Duration of Surgery: 3 hrs Complications: None Postoperative Plan: Admit to inpatient for clinical observation
[2025-03-27 04:15] VITALS: BP 116/57; PULSE 80; RESP 16; TEMP 36.8; O2SAT 98
--- NOTE | 2025-03-27 07:00 | HO.NEUROPN_ITS ---
Neurosurgery Operative Note Date of Service: 03/27/25 Narrative: POD: 1 Procedure: L4-S1 ALIF Ms. Mendez is a pleasant 59-year-old female who underwent L4-S1 ALIF with Dr. Sinclair yesterday. She has been seen sitting upright in bed on [facility] room 373 this morning. She reports that she had some significant back pain yesterday directly after surgery, however now only has a low-grade back pain that is fairly well treated with current pain regimen. She reports that she has been up out of bed to the bathroom, and has ambulated around her room. She is voiding well and tolerating her current diet. Overall she states that her symptoms have already improved compared to preoperatively. Afebrile, vital signs stable. Strength is full in bilateral lower extremitites. Back / anterolateral dressings have some staining without signs of hematoma. No active sanguineous drainage. Area is dry. Plan: Conrad 59-year-old female who underwent L4-S1 ALIF with Dr. Sinclair yesterday. We would like to see her work with physical therapy this morning and if she does well we will discharge her later this afternoon. She will be staying with her mother who will provide basic care services for her. She was seen at bedside with Dr. Sinclair this AM. Sung Sinclair MD,PhD [facility]
--- NOTE | 2025-03-27 07:04 | PM.DS ---
DS: Providers Provider Date of Service: 03/27/25 Date of admission: 03/26/25 09:32 Date of discharge: 03/27/25 Primary care physician: Unknown Physician DS: Summary Time Attestation Discharge Coordination Time (in mins): 20 Quality: Safe Use of Opioids Does Pt have an Active Cancer Diagnosis on the Problem List?: No Quality: Stroke Does the patient have a stroke diagnosis?: No Physical Exam Vital Signs: Vital Signs: Last Vital Signs Temp 98.3 F 03/27/25 04:15 Pulse 80 03/27/25 04:15 Resp 16 03/27/25 04:15 BP 116/57 L 03/27/25 04:15 Pulse Ox 98 03/27/25 04:15 O2 Del Method Room Air 03/27/25 04:15 O2 Flow Rate 2 03/26/25 23:23 BMI result Body Mass Index 24.5 Discharge Plan Discharge Anticipated Discharge Date/Time: 03/27/25 07:05 Patient Disposition: Home, Self-Care Discharge Diagnosis: s/p L4-S1 ALIF Referrals: Physician,Unknown J [Primary Care Provider, Medical] - 1 Week Discharge Medications: New oxycodone 5 mg tablet See Rx Instructions .ROUTE .COMPLEX PRN (Reason: pain) Qty: 30 0RF Rx Instructions: Take 1-2 tablets by mouth every 4 hours; Partial Fill upon patient request. docusate sodium 100 mg capsule 100 mg PO BID PRN (Reason: constipation) Qty: 20 0RF Continued celecoxib [Celebrex] 200 mg Capsule 200 mg PO DAILY oxybutynin chloride 10 mg tablet extended release 24hr 10 mg PO QAM methylphenidate HCl 10 mg tablet 10 mg PO TID venlafaxine 150 mg capsule,extended release 24hr 150 mg PO DAILY oxcarbazepine 300 mg tablet 150 mg PO BID omeprazole 40 mg capsule,delayed release(DR/EC) 40 mg PO DAILY ascorbic acid (vitamin C) [Vitamin C] 500 mg Tablet 500 mg PO DAILY biotin 1,000 mg PO DAILY ibuprofen 600 mg Tablet 600 mg PO Q8H PRN (Reason: Pain) albuterol sulfate 90 mcg/actuation Hfa Aerosol Inhaler 2 puff INHALATION Q4-6H PRN (Reason: Shortness Of Breath Or Wheezing) Discharge Orders: Discharge Order (Routine); Ordered 03/27/25 Ordered By: Sung Easton Diet: Advance to usual diet Activity on Discharge: As tolerated Stand Alone Forms: Patient Portal Discharge page Print Language: Irish Activity Restrictions/Additional Instructions: After your spinal surgery we ask you to observe the following restrictions/guidelines: Activity: It is normal to feel some discomfort as you increase your activity, but that will improve with time. We ask you avoid heavy lifting or acitivities that cause pain. As a general rule, 8lbs is a safe limit for lifting right after surgery. Walk as much as you feel comfortable but not to exhaustion. You will feel extra tired the first few days after surgery. Stay well hydrated. It is OK to walk up and down stairs You may return to driving when you are off narcotics (such as vicodin, oxycodone, dilaudid, etc), and you are back to normal functional capacity. If you have any concerns please check with office before driving. Return to work is specific to each patient and each surgery, so please speak with your doctor/PA at first follow up. Please bring paperwork such as FMLA at that time if you need it filled out. Medications: We recommend you take 500mg Tylenol every 4 hours for the first week after surgery, if you do not have any liver issues and can tolerate this medication. Do not exceed 4,000mg daily. We also recommend you take Ibuprofen 600mg every 8 hours for the first week after surgery starting on post op day 1, ?if you do not have any kidney or sugar control issues and can tolerate this medication. Do not exceed 2,000mg daily. We will give you a short supply of narcotics after surgery (usually one weeks worth). If you need more please call the office but do not use more than prescribed. You will need to give our office 48 hours notice if you need narcotics refilled and we do not fill narcotics on weekends or evenings. If you are on a narcotic, it is a good idea to take a stool softener such as colace or senna to avoid constipation If you take blood thinner such as aspirin, Plavix, Coumadin, Effient, Eliquis etc for conditions such as Afib, DVT, Pulmonary embolus, coronary disease, stents etc please speak with your surgeon about specific details as to when you can resume these medications. You can resume NSAIDs on post op day 1 (eg: Motrin, Naproxen, etc). Follow up: Please call the office, , after surgery to arrange a 3 week follow up for wound check. Wound Care: You may remove your dressing on the first day after surgery. ?You may ?leave open to air. Please do not remove the steri strips underneath. they will fall off on their own in one week. IT IS NORMAL FOR THE WOUND TO OOZE OR BE BLOODY FOR A FEW DAYS AFTER SURGERY. ?IF THIS HAPPENS JUST PLACE NEW DRESSING OVER IT TO AVOID STAINING CLOTHES. You may shower on post op day # 1 We ask that you do not let the water soak the wound. If it does get wet, just towel dry lightly. Please do not scrub your incision or place any type of chemical/ointment on the wound. No tub baths, pools or jacuzzis for one month. If you have any leaking or redness from your wound, or fevers, please call the office. Care Plan Goals: Return to normal activity as tolerated Health Concerns: None Plan of Treatment: Follow-up in clinic in 2-3 weeks Assessment: POD: 1 Procedure: L4-S1 ALIF Ms. Mendez is a pleasant 59-year-old female who underwent L4-S1 ALIF with Dr. Sinclair yesterday. She has been seen sitting upright in bed on [address] [place] [address] this morning. She reports that she had some significant back pain yesterday directly after surgery, however now only has a low-grade back pain that is fairly well treated with current pain regimen. She reports that she has been up out of bed to the bathroom, and has ambulated around her room. She is voiding well and tolerating her current diet. Overall she states that her symptoms have already improved compared to preoperatively. Afebrile, vital signs stable. Strength is full in bilateral lower extremitites. Back / anterolateral dressings have some staining without signs of hematoma. No active sanguineous drainage. Area is dry. Plan: Pleasant 59-year-old female who underwent L4-S1 ALIF with Dr. Sinclair yesterday. We would like to see her work with physical therapy this morning and if she does well we will discharge her later this afternoon. She will be staying with her mother who will provide basic care services for her. She was seen at bedside with Dr. Sinclair this AM. Sung Sinclair MD,PhD [facility]
[2025-03-27] MEDS: Venlafaxine HCl ER 150 MG CAP.ER.24H PO (07:23)
[2025-03-27] MEDS: oxyBUTYnin chloride ER 5 MG TAB.ER.24 10 MG PO (07:23)
[2025-03-27 07:28] VITALS: BP 126/60; PULSE 61; RESP 16; TEMP 36.6; O2SAT 95
--- NOTE | 2025-03-27 08:58 | HO.POSTANES ---
Post Anesthesia Evaluation Post Anesthesia Evaluation Date of Service: 03/27/25 Vital Signs: Vital Signs Temp Pulse Resp BP Pulse Ox O2 Del Method O2 Flow Rate 03/27/25 07:28 97.8 F 61 16 126/60 95 Room Air 03/27/25 04:15 98.3 F 80 16 116/57 L 98 Room Air 03/26/25 23:23 97.9 F 81 16 100/54 L 100 Nasal Cannula 2 Anesthesia: General Mental Status: Awake Pain Control: Satisfactory Nausea/Vomiting: None Hydration: Adequate Anesthesia-Related Issues: No Anes. Related Issues
--- NOTE | 2025-03-27 09:36 | MHC.CM.PN ---
Patient lives in a home alone. Independent w/ all care. Denies use of DME or services. PCP Srikanth Looney MD Reports she has an HCP naming her son, Robles Mendez. Copy requested. DP: LUIS ALBERTO later today. PT rec home w/ family support and patient will be staying with her mother while recovering. Mother will also provide transport.
[2025-03-27] MEDS: oxyCODONE HCl Immed Release 5 MG TABLET PO (09:51)
[2025-03-27 14:00] VITALS: BP 122/58; PULSE 68; RESP 16; TEMP 36.8; O2SAT 96
== END 2025-03-27 14:37 | disposition home or self-care (01) | DRG 304 ==
LOC: HO.SSSA 09:33 → HO.S3 16:17
PROVIDERS: Nurse Practitioner; Admitting Provider Neurological Surgery; PCP Family Medicine; Visit Provider Neurological Surgery
PROC: 0SG00A0 Fusion of Lumbar Vertebral Joint with Interbody Fusion Device, Anterior Approach, Anterior Column, Open Approach (ICD-10-PCS; principal; 2025-03-26 11:20)
DX: M43.16 Spondylolisthesis, lumbar region (principal); M54.16 Radiculopathy, lumbar region; Z79.899 Other long term (current) drug therapy
CPT/HCPCS: 36415; 74018; 80048; 85027; 86850; 86900; 86901; 93005; 97161; C1713; C1889; J0131; J0690; J1171; J1885; J2003; J2405; J2704; J3010; L8699

== ENCOUNTER → 2025-03-26 09:32 | Outpatient (BNV) | payer BC, SELFPAY | PROVIDERS: Admitting Provider Neurological Surgery; Visit Provider Surgery | DX: M54.16 Radiculopathy, lumbar region (principal) | CPT/HCPCS: 20930; 22558; 22585; 22612; 22614; 22840; 22845; 22853 ==

== ENCOUNTER 2025-04-17 13:43 | Outpatient (AMB) | payer BC, SELFPAY ==
--- NOTE | 2025-04-17 14:02 | A.SPINEOV_ITS ---
Intake Visit Reasons: 1st post op Intake Note: Ms. Mendez is here today for her 1st post-op visit. 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 Sinclair. She reports that overall she is very satisfied with her surgery, but raise several concerns regarding some return of pain about 1 week ago. She states that after the 1st week of surgery she was essentially completely pain- free. Without any known inciting incident she began experiencing a low-grade 2/10 low back pain just below her surgical incision scars. She extensively explained how she is very concerned that she must have missed something up since the surgery. I reassured her that this is likely some transient low back pain as she continues to heal from her fusion surgery. It likely will resolve in time as her postoperative inflammation recedes in her sutures her absorbed. She asked several other questions regarding the postoperative healing course, all of which I answered to the best of my ability. No new neurological deficits. The patient ambulates well and rises from a seated position without difficulty. She uses no assistive devices to ambulate. Her posterior incision site is closed and well healing. With no signs of pamela thema or drainage. I would like to follow up with Carina again in 6 weeks for her 2nd postoperative visit. At her next visit we will obtain a set of x-rays. Sung Sinclair MD,PhD [facility] Coding Level of Care Code Global (31982) Diagnoses S/P lumbar fusion Z98.1
--- OUTSIDE RECORDS SUMMARY | 2025-04-17 18:13 | XMS_ITS | Clinical Summary ---
Author Organization [facility] Address [address] [place] [address] Care Team Providers Care Adult Crossing Guard Name Role Phone Srikanth Looney MD Primary Care Provider [phone] Allergies Active Allergy Reactions Criticality Noted Date [...] a day. 90 capsule 3 08/17/2024 08/13/19 Active OXcarbazepine (TRILEPTAL) 300 mg tablet Take [...] a day. 90 capsule 1 01/01/2025 07/01/19 Active oxybutynin XL (DITROPAN XL) 10 mg tablet Take 1 tablet (10 mg total) by mouth in the morning. 90 tablet 1 01/25/2025 Active methylphenidate HCl (RITALIN) 10 mg tablet Take 1 tablet (10 mg total) by mouth 3 times a day. 90 tablet 03/15/2025 Active fluticasone propionate (FLOVENT HFA) 110 mcg inhaler 02/27/2025 Act britton Active Problems Problem Noted Date Diagnosed Date Pre-op exam 04/08/2025 Spinal stenosis of lumbar re gion with [...] Encounters Date Type Department Care Team Description 04/09/2025 11:15 AM EST Office Visit [address] [address] Srikanth Looney MD Spinal stenosis of lumbar region with neurogenic claudication (Primary Dx); S/P spinal fusion 04/03/[address] [address] Srikanth Looney MD Pre-op Exam 03/19/[address] [address] Evette Gongora [place] 03/15/[address] [address] Srikanth Looney MD 03/15/[address] [address] Evette Gongora [place] 01/25/2025 2:00 PM EDT Office Visit [address] [address] Srikanth Looney MD Attention or concentration deficit (Primary Dx); 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 [address] [place] [address] Srikanth Looney MD from Last 3 Months Immunizations Immunization Administration Dates Next Due INFLUENZA, SPLIT VIRUS, TRIVALENT, PF ,01/20/2024,02/15/2017,01/21 Influenza, Injectable, Quadr ivalent, Preservative Free 02/06/2020,02/07/2019,02/14/2018 Influenza, Quadrivalent, Rec ombinant, Injectable, PF 04/27/2022 Influenza, Trivalent, MDV, Injectable 03/05/2014 Pneumococcal Polysaccharide Vaccine, 23 Valent 12/20/2016 Pneumococcal conjugate PCV20,polysaccharide [id number] conjugate, adjuvant, PF (Prevnar 20) 01/25/2025 Tetanus [...] oz pur e alcohol) Socially on weekends [facility] Utilities Answer Date Recorded In the past 12 months has [employer], gas, oil, or water company threatened to shut off services in your [...] Sign Reading Time Taken Comments Blood Pressure 132/88 04/09/2025 11:34 AM EST Pulse 71 04/09/2025 11:13 AM EST Temperature 36.2 C (97.2 F) 04/09/2025 11:13 AM EST Respiratory Rate 14 12/20/2024 9:26 AM EDT Oxygen Saturation 98% 04/09/2025 11:13 AM EST Inhaled Oxygen Concentration - - Weight 57.6 kg (127 lb) 04/09/2025 11:13 AM EST Height 160 cm (5' 3 ) 04/09/2025 11:13 AM EST Body Mass Index 22.5 04/09/2025 11:13 AM EST Plan of Treatment Upcoming Encounters Date Type Department Care Team ([facility] st Contact Info) Description 07/16/2025 1:20 PM EDT Appointment [address] [address] 07/26/2025 3:30 PM EDT Office Visit [address] [place] [address] Srikanth Looney MD [address] [place] [phone] Health Maintenance Due Date Last Done Comments Cologuard 1965 FOBT / Fit Test 1965 Sigmoidoscopy 1965 Zoster Vaccines (2 of 2) 12/07/2017 10/12/2017 COVID-19 Vaccine ( season) 2024 03/19/2022, 04/20/2021, 08/11/2020, Additional history exists Social Drivers of Health Annual Screening 05/21/2025 05/21/2024 Depression Screening and Follow-Up 01/18/2026 01/18/2025 Mammogram 07/10/2026 07/10/2024, 08/2023, 06/24/2022, Additional history exists Colon Cancer Screening 08/01/2033 Colonoscopy 08/01/2033 08/02/2023 DTaP,Tdap,and Td Vaccines (3 - Td or Tdap) 01/19/2034 01/20/2024, 09/02/2013 RSV Vaccine (60+ years old and patients) (1 - 1-dose 75+ series) 2039 HIV Screening Completed 11/25/2023 Hepatitis C Screening Completed 11/25/2023 Influenza Vaccine Completed 01/25/2025, , 04/27/2022, Additional history exists Pneumococcal Vaccine: 50+ Years Completed 01/25/2025, 12/20/2016 Alcohol/Substance Use Screening Completed 04/08/2025 Hepatitis B Vaccines Aged Out No long er eligible based on patient's age to complete this topic Procedures * Due to [place] state law, this organization might not be sharing negative HIV tests. Procedure Name Priority Date/Time Associated Diagnosis Comments DIDIER BILATERAL SCREENING DIGITAL MAMMOGRAM WITH BRONWYN Routine 07/10/2024 1:09 PM EDT Screening mammogram for breast cancer HEPATITIS C ANTIBODY W/REFLEX TO HCV RNA, QUANTITATIVE PCR Routine 11/25/2023 10:54 AM EDT Annual physical exam COLONOSCOPY 08/02/2023 from Last 3 Months or Most Recently Relevant to Health Maintenance Results * Due to [place] state law, this organization might not be sharing negative HIV tests. * DIDIER Bilateral Screening Digital Mammogram With Bronwyn (07/10/2024 1:09 PM EDT) Anatomical Region Laterality Modality Breast Bilateral Mammography Narrative 07/22/2024 12:14 PM EDT Exam Date: 07/10/[address] [address] EXAMINATION DIDIER Bilateral Screening Digital Mammogram With Bronwyn. INDICATION Carina Mendez is a 59 y.o. female and is seen for: DIDIER Bilateral Screening Digital Mammogram With Bronwyn. CC and MLO views were obtained. FDA approved [employer] AI (artificial intelligence) software and R2 CAD [...] breast ultrasound (ABUS) depending on risk factors. [email or web address] Breast MRI is available at many [facility] MRI locations. To schedule, enter an MRI order into [facility] Epic (MRI BREAST BILAT SCREENING W WO CONTRAST), call [phone] or [phone], or fax [phone]. ABUS is available at two [facility] sites. To schedule, enter an ABUS order into [facility] (ABUS), contact [facility] Scheduling (call [phone] or fax order [phone]), or contact [facility] Central Scheduling (call [phone] or fax order [phone]). If this radiology report contains a blank impression section, it is an incomplete radiology report. Please contact the interpreting radiologist or applicable radiology division as soon as possible to obtain the completed interpretation. Merari Galvin MD Resulting Agency Comment [phone] Srikanth Looney MD IMG BI PROCEDURES Final Resul t * Hepatitis C Antibody w/Reflex to HCV RNA, Quantitative PCR (11/25/2023 10:54 AM EDT) Hepatitis C Antibody Interpretation Nonreactive Nonreactive 11/25/2023 2:[address] [facility] Blood Structure of peripheral vein / Unknown Venipuncture / Unknown 11/25/2023 10:54 AM EDT 11/25/2023 11:03 AM EDT us Srikanth Looney MD LAB BLOOD ORDERABLES Final Re sult [facility] [address] [place] [address], * COLONOSCOPY (08/02/2023) Narrative Procedure Note Ramses Hartley MD - 08/02/2023 1:19 PM EDT [facility] Patient Name: Carina Mendez Procedure Date: 08/02/2023 [...] pulse, and oxygen saturations were monitored continuously. [id number] Colonoscope was introduced through the anus and [...] Most Recently Relevant to Health Maintenance Insurance [facility] HMO/POS Advance Directives Documents on File Type Date Recorded Patient Animal Sticker Expl anation Health Care Proxy 10/27/2021 Health [...] Relationship Healthcare Agent Relationshi p Communication Robles [facility] Health Care Agent Care Teams Adult Crossing Guard Relationship Specialty Start Date End Date Srikanth Looney MD [address] [place] [phone] PCP - General Family Medicine 03/01/23
== END 2025-04-17 14:23 | disposition home or self-care (01) ==
LOC: HO.HNS 13:44
PROVIDERS: Visit Provider Physician Assistant
DX: Z98.1 Arthrodesis status (principal)
CPT/HCPCS: 99024